=== PATIENT | female | born 1945 | race Caucasian/White ===

== ENCOUNTER 2019-03-28 21:56 | Inpatient (IN) | payer MEDICARE, OTHER ==
[~2019-03-28] VITALS: Ht 157.5 cm; Wt 61.2 kg
--- OUTSIDE RECORDS SUMMARY | 2019-03-28 21:58 | XMS REPORT | Summary of Care ---
Author Author [facility] - Health Organization [facility] - Health Address Unknown Phone Unavailable Care Team Providers Care Service Order Taker Name Role Phone Valentine Boone COLD FOOD PACKER PCP Reason for Referral * (Routine) Referred By Contact Referred To Contact Status Reason Specialty Diagnoses / Procedures Tyesha Mckeon PA-C [address] [place] [address] New Request Audiology Diagnoses Bilateral hearing loss, unspecified hearing loss type P rocedures CONSULT/REFERRAL AUDIOLOGY Reason for Visit * Reason Comments New Evaluation Ear Problem Hearing Problem * (Routine) Referred By Contact Referred To Contact Status Reason Specialty Diagnoses / Procedures Danny Lopez [address] [place] [address] Authorized Otolaryngology Diagnoses Unspecified hearing loss, left ear Impacted cerumen, bilateral P rocedures CONSULT/REFERRAL OTOLARYNGOLOGY Encounter Details Care Team Description Date Type Department Shelbie Us PA [address] [place] [address] Bilateral hearing loss, unspecified hearing loss type (Primary Dx); Tinnitus of both ears; Bilateral impacted cerumen 01/01/2019 [facility] [address] [place] [address] Allergies Comments Active Allergy Reactions Severity Noted Date Unknown pt confused. Penicillins Other - See Low 01/08/2017 comments documented as of this encounter (statuses as of 01/01/2019) Medications End Date Status Medication Sig Dispensed Refills Start Date Active ALPRAZolam 2 mg Take 1 tablet 45 tablet 2 tabletIndications: by mouth 2 9 Anxiety (two) times daily as needed for Anxiety. Active atorvastatin 20 mg Take 1 tablet 90 tablet 1 tabletIndications: by mouth at 9 Coronary artery disease bedtime. involving [place] heart without angina pectoris, unspecified vessel or lesion type Active cloniDINE 0.2 mg Daily prn 90 tablet 1 tabletIndications: >160 systolic 9 Hypertensive heart or >100 disease without heart diastolic failure Active clopidogrel 75 mg Take 1 tablet 90 tablet 1 tabletIndications: by mouth 9 Coronary artery disease daily. involving [place] heart without angina pectoris, unspecified vessel or lesion type, Hypertensive heart disease without heart failure, S/P coronary artery stent placement Active fluticasone-vilanterol 1 puff daily, 3 Each 1 (BREO ELLIPTA) 100-25 rinse mouth 9 mcg/dose DsDvIndications: after dose Chronic obstructive pulmonary disease, unspecified COPD type Active hydrOXYzine 25 mg Take 1 tablet 90 tablet 1 tabletIndications: by mouth 3 9 Itching (three) times daily as needed for Itching. Active metoprolol succinate XL Take 1 tablet 90 tablet 1 100 mg 24 hr by mouth 9 tabletIndications: daily. Hypertensive heart disease without heart failure Active levoFLOXacin (LEVAQUIN) Take 1 tablet 7 tablet 0 500 mg tabletIndications: by mouth 9 Acute non-recurrent every 24 sinusitis, unspecified (twenty-four) location, COPD hours. exacerbation Active methylPREDNISolone Take by 21 Each 0 (MEDROL, HUNG,) 4 mg mouth 9 tabletsIndications: COPD SEE-INSTRUCTI exacerbation ONS. follow package directions Active albuterol 90 Inhale 2 8.5 g 11 mcg/actuation Puffs every 6 9 inhalerIndications: (six) hours Chronic obstructive as needed for pulmonary disease, Wheezing or unspecified COPD type Shortness of Breath. documented as of this encounter (statuses as of 01/01/2019) Active Problems Problem Noted Date Chronic obstructive pulmonary disease, unspecified COPD type 07/30/2018 Anxiety 07/30/2018 Coronary artery disease involving [place] heart without angina pectoris, 07/30/2018 unspecified vessel or lesion type Hypertensive heart disease without heart failure 07/30/2018 S/P coronary artery stent placement 07/30/2018 Prediabetes 07/30/2018 Chronic kidney disease, stage III (moderate) 07/30/2018 documented as of this encounter (statuses as of 01/01/2019) Social History Date Tobacco Use Types Packs/Day Years Used Former Smoker Cigarettes 3 50 Smokeless Tobacco: Never Used Drinks/Week oz/Week Comments Alcohol Use No Sex Assigned at Date Recorded Not on file Industry Job Start Date Occupation Not on file Not on file Not on file Travel End Travel History Travel Start No recent travel history available. documented as of this encounter Last Filed Vital Signs Reading Time Taken Comments Vital Sign - - Blood Pressure - - Pulse - - Temperature - - Respiratory Rate - - Oxygen Saturation - - Inhaled Oxygen Concentration 61.2 kg (135 lb) 01/01/2019 8:40 AM CDT Weight - - Height 23.91 07/30/2018 10:53 AM CDT Body Mass Index documented in this encounter Progress Notes * Shelbie Us PA - 01/01/2019 8:45 AM CDT Otolaryngology New Patient Clinic Visit Name: Liv Gonzalez Date: 01/01/2019 10:04 Chief Complaint: Hearing loss and cerumen impaction History of Present Illness: Liv Gonzalez is a 73 year old female presenting at the request of Danny rodriguez DO for initial evaluation of hearing loss and cerumen impaction. She repor ts not being able to hear with her left ear for 30 years. She states that 30 yea rs ago, she was cleaning the kitchen and heard a pop. She was evaluated by a ENT in the [facility] and was told there was no available intervention to fix her hearing. She denies recurrent ear infections or ear surgeries in the past. Today, she has noticed that hearing on her right side has progressively wo rsened the past few months. She is requesting a hearing test and is interested i n obtaining hearing aids. She was evaluated by her PCP and found to have bilater al cerumen impactions. She cleans her ears with q-tips. She also endorses stable longstanding HF tinnitus in the left ear. Denies otalgia, otorrhea, ear fullnes s, or other ENT concerns. Past Medical Hx: Past Medical History: Diagnosis Date Anxiety Asthma Depression Hypertension Past Surgical Hx: Past Surgical History: Procedure Laterality Date COLONOSCOPY 12/2015 Social History: Social History Tobacco Use Smoking status: Former Smoker Packs/day: 3.00 Years: 50.00 Pack years: 150.00 Types: Cigarettes Smokeless tobacco: Never Used Substance Use Topics Alcohol use: No Drug use: No Family History: Family History Problem Relation Age of Onset Heart Mother Hypertension Mother Cancer Mother Depression Father Hypertension Father Heart Maternal Grandmother Heart Maternal Grandfather Cancer Paternal Grandmother Heart Paternal Grandfather Hypertension Paternal Grandfather Allergies: Penicillins Medications: Current Outpatient Medications Medication Sig albuterol 90 mcg/actuation inhaler Inhale 2 Puffs every 6 (six) hours as nee ded for Wheezing or Shortness of Breath. ALPRAZolam 2 mg tablet Take 1 tablet by mouth 2 (two) times daily as needed for Anxiety. atorvastatin 20 mg tablet Take 1 tablet by mouth at bedtime. cloniDINE 0.2 mg tablet Daily prn >160 systolic or >100 diastolic clopidogrel 75 mg tablet Take 1 tablet by mouth daily. fluticasone-vilanterol (BREO ELLIPTA) 100-25 mcg/dose DsDv 1 puff daily, rin se mouth after dose hydrOXYzine 25 mg tablet Take 1 tablet by mouth 3 (three) times daily as nee ded for Itching. levoFLOXacin (LEVAQUIN) 500 mg tablet Take 1 tablet by mouth every 24 (twent y-four) hours. methylPREDNISolone (MEDROL, HUNG,) 4 mg tablets Take by mouth SEE-INSTRUCTIO NS. follow package directions metoprolol succinate XL 100 mg 24 hr tablet Take 1 tablet by mouth daily. Review of Systems Positive issues in the Review of Systems will be BOLD Constitutional: fevers, chills, sweats, fatigue, weight loss, change in appetit e Eyes: vision changes, diplopia, eye pain Ears: hearing loss, otalgia, otorrhea, tinnitus, vertigo Nose: rhinorrhea, nasal congestion, epistaxis Throat: dysphagia, odynophagia, dysphonia Cardiovascular: chest pain, palpitations, dyspnea on exertion Respiratory: cough, wheeze, shortness of breath; hx asthma or COPD Gastrointestinal: nausea, vomiting, diarrhea, abdominal pain, heartburn, indiges tion Genitourinary: recent infections, ESRD, dysuria, oliguria Musculoskeletal: arthritis, joint pain, mobility problems Integumentary: skin infection, rashes or skin changes Neurologic: seizures, headaches, weakness Psychiatric: ADHD, anxiety, depressed mood, substance abuse Endocrine: thyroid problems, diabetes Hematologic: bleeding disorders, easy bruising Allergy/Immunology: food allergy, environmental allergy, immunosuppressed, eczem a Physical Exam: Wt 135 lb (61.2 kg) | BMI 23.91 kg/m GENERAL: WDWN in NAD. Normal voice. No dyspnea or stridor. HEAD/FACE: Normocephalic, atraumatic. Facial nerve intact and bilaterally symmet kenia. Submandibular and parotid glands non-tender and without masses. EYES: EOMI; conjunctivae clear EARS: Auricles normal. Canals with significant cerumen impactions bilaterally- S ee procedure note below. NOSE: no external deviation; nares patent, nasal mucosa normal; septum midline; inferior turbinates mild hypertrophy. No polyps, purulence, or mass. OC/OP: No trismus; oral mucosa is wnl, no mass or lesion; edentulous, normal ton adis mobility; tonsils present and not enlarged; uvula midline; palate intact and elevates symmetrically. NECK: Neck is supple; trachea midline; no obvious goiter or thyroid nodules appr eciated. LYMPH: Unable to appreciate gross cervical lymphadenopathy. SKIN: No concerning rash, lesion, pigmentation changes on head/neck. NEUROLOGICAL: Cranial nerves II-XII grossly intact. PSYCHIATRIC: Oriented to person, place, time. Appropriate affect for age. RESPIRATORY: Good respiratory effort; symmetrical expansion of thoracic cavity. CARDIOVASCULAR: Extremities well perfused. No cyanosis. PROCEDURE NOTE: BINOCULAR MICROSCOPY WITH BILATERAL CERUMEN REMOVAL Verbal consent was obtained. Binocular microscopy was used to evaluate the right ear. Speculum placed in the right ear. Narrow canals with obstructive cerumen. A combination of suction, multiple applications of colase, and blunt dissection were used to remove wax from the right ear. Inspection of the TM shows it to be intact with no effusion or retraction. Speculum then placed in the left ear. Aga in narrow canal with obstructive cerumen that was removed using suction and blun t dissection. Inspection of the TM shows it to be intact with no effusion or ret raction. Patient reported improvement in ear fullness and hearing following ceru men removal. Patient tolerated the procedure well. No complications. Medical Data Comprehensive chart review performed in Epic Laboratory No new labs Radiology No new imaging Diagnoses: ICD-10-CM ICD-9-CM 1. Bilateral hearing loss, unspecified hearing loss type H91.93 389.9 2. Tinnitus of both ears H93.13 388.30 3. Bilateral impacted cerumen H61.23 380.4 Assessment/Plan: Liv Gonzalez is a 73 year old female with hearing loss(L>R) and bilateral cerumen impactions. Cerumen was removed in clinic today. Her ear exam following disimpaction was normal. Will schedule audiogram to evaluate hearing loss. - Ears cleaned today. No evidence of infection. - No Q-tips or other objects in ears. - Audio consult placed for hearing loss - Follow up after audiogram I discussed at length the exam findings, diagnoses, and treatment options with the patient. Questions have been answered to satisfaction. EPIFANIO BauitstaC Department of Otolaryngology [facility] documented in this encounter Plan of Treatment Care Team Description Date Type Specialty 2, [place] Audio Sound Suite 01/22/2019 Ancillary Visit Audiology Shelbie Us PA [address] [place] [id number] 01/22/2019 Office Visit Otolaryngology Health Maintenance Due Date Last Done Comments HEPATITIS C (HCV) SCREEN 1947 DTaP,Tdap,and Td Vaccines 1966 (1 - Tdap) MAMMOGRAM 1987 COLONOSCOPY 1997 Zoster Recombinant 1997 Vaccine (SHINGRIX) (1 of 2) LUNG CANCER SCREEN: 2002 Recommended for age 55-80 with 30 + pack year history Medicare Wellness Visit 2012 Osteoporosis Screening 2012 PNEUMOCOCCAL VACCINES 65+ 2012 (1 of 2 - PCV13) INFLUENZA VACCINE (#1) 2019 documented as of this encounter Results Not on filedocumented in this encounter Visit Diagnoses Diagnosis Bilateral hearing loss, unspecified hearing loss type - Primary Tinnitus of both ears Unspecified tinnitus Bilateral impacted cerumen Impacted cerumen documented in this encounter Insurance Type Payer Benefit Subscriber ID Effective Phone Address Plan / Dates Group Medicare MEDICARE MEDICARE xxxxxxxxxxx 2012- [id number] [place] [address] Medicaid [place] MED[place] xxxxxxxxx 2018-P [phone] [address] [facility] [address] [place] [address] documented as of this encounter"
--- OUTSIDE RECORDS SUMMARY | 2019-03-28 21:58 | XMS REPORT | Summary of Care ---
Author Author [facility] - Health Organization [facility] - Health Address Unknown Phone Unavailable Care Team Providers Care Occupational Rehabilitation Aide Name Role Phone Valentine Boone PCP Reason for Visit * Reason Comments Refill Request Encounter Details Care Team Description Date Type Department Valentine Boone FNP [address] [id number] Refill Request 01/07/2019 Refill [facility], [address] [address] Allergies Comments Active Allergy Reactions Severity Noted Date Unknown pt confused. Penicillins Other - See Low 01/08/2017 comments documented as of this encounter (statuses as of 01/07/2019) Medications End Date Status Medication Sig Dispensed Refills Start Date Active ALPRAZolam 2 mg Take 1 tablet 45 tablet 2 tabletIndications: by mouth 2 9 Anxiety (two) times daily as needed for Anxiety. Active atorvastatin 20 mg Take 1 tablet 90 tablet 1 tabletIndications: by mouth at 9 Coronary artery disease bedtime. involving [place] heart without angina pectoris, unspecified vessel or lesion type Active cloniDINE 0.2 mg Daily prn 90 tablet 1 tabletIndications: >160 systolic 9 Hypertensive heart or >100 disease without heart diastolic failure Active clopidogrel 75 mg Take 1 tablet 90 tablet 1 tabletIndications: by mouth 9 Coronary artery disease daily. involving [place] heart without angina pectoris, unspecified vessel or lesion type, Hypertensive heart disease without heart failure, S/P coronary artery stent placement Active hydrOXYzine 25 mg Take 1 tablet [...] or unspecified COPD type Shortness of Breath. Active fluticasone INHALE 1 PUFF 180 Each 1 furoate-vilanterol (BREO BY MOUTH 9 ELLIPTA) 100-25 mcg/dose EVERY DAY * DsDvIndications: Chronic RINSE MOUTH obstructive pulmonary AFTER USE * disease, unspecified COPD type 01/07/2019 Discontinued fluticasone-vilanterol 1 puff daily, 3 Each 1 (BREO ELLIPTA) 100-25 rinse mouth 9 mcg/dose DsDvIndications: after dose Chronic obstructive pulmonary disease, unspecified COPD type documented as of this encounter (statuses as of 01/07/2019) Active Problems Problem Noted Date Chronic obstructive pulmonary disease, unspecified COPD type 07/30/2018 Anxiety 07/30/2018 Coronary artery disease involving [place] heart without angina pectoris, 07/30/2018 unspecified vessel or lesion type Hypertensive heart disease without heart failure 07/30/2018 S/P coronary artery stent placement 07/30/2018 Prediabetes 07/30/2018 Chronic kidney disease, stage III (moderate) 07/30/2018 documented as of this encounter (statuses as of 01/07/2019) Social History Date Tobacco Use Types Packs/Day [...] of this encounter Last Filed Vital Signs Not on filedocumented in this encounter Plan of Treatment Care Team Description Date Type Specialty 2, [place] Audio Sound Suite 01/22/2019 Ancillary Visit Audiology Shelbie Us PA [address] [place] [address] 01/22/2019 Office Visit Otolaryngology Health Maintenance Due [...] filedocumented in this encounter Visit Diagnoses Diagnosis Chronic obstructive pulmonary disease, unspecified COPD type documented in this encounter Insurance Type Payer Benefit Subscriber ID Effective Phone Address Plan / Dates Group Medicare MEDICARE MEDICARE xxxxxxxxxxx 2012- [phone] Present [id number] [place] [id number] Medicaid [place] MED[place] xxxxxxxxx 2018-P [phone] [address] [facility] [id number] [place] [address] documented as of this encounter
--- OUTSIDE RECORDS SUMMARY | 2019-03-28 21:58 | XMS REPORT | Summary of Care ---
Author Author [facility] - Health Organization [facility] - Health Address Unknown Phone Unavailable Care Team Providers Care Microphone Boom Operator Name Role Phone Valentine Boone DIGITAL PRE PRESS OPERATOR PCP Reason for Visit * Reason Comments Follow-up hearing loss Encounter Details Care Team Description Date Type Department Shelbie Us PA [address] [place] [address] Tinnitus of both ears (Primary Dx); Left asymmetrical SNHL; Sensorineural hearing loss (SNHL) of right ear with restricted hearing of left ear; Salpingitis of left eustachian tube 01/22/2019 [facility] [address] [place] [address] Allergies Comments Active Allergy Reactions Severity Noted Date Unknown pt confused. Penicillins Other - See Low 01/08/2017 comments documented as of this encounter (statuses as of 01/22/2019) Medications End Date Status Medication Sig Dispensed Refills Start Date Active ALPRAZolam 2 mg Take 1 tablet 45 tablet 2 tabletIndications: by mouth 2 9 Anxiety (two) times daily as needed for Anxiety. Active atorvastatin 20 mg Take 1 tablet 90 tablet 1 tabletIndications: by mouth at 9 Coronary artery disease bedtime. involving [place] heart without angina pectoris, unspecified vessel or lesion type Active cloniDINE 0.2 mg Daily prn 90 tablet 1 tabletIndications: >160 systolic 9 Hypertensive heart or >100 disease without heart diastolic failure Active clopidogrel 75 mg Take 1 tablet 90 tablet 1 tabletIndications: by mouth 9 Coronary artery disease daily. involving [place] heart without angina pectoris, unspecified vessel or [...] AFTER USE * disease, unspecified COPD type documented as of this encounter (statuses as of 01/22/2019) Active Problems Problem Noted Date Chronic obstructive pulmonary disease, unspecified COPD type 07/30/2018 Anxiety 07/30/2018 Coronary artery disease involving [place] heart without angina pectoris, 07/30/2018 unspecified vessel or lesion type Hypertensive heart disease without heart failure 07/30/2018 S/P coronary artery stent placement 07/30/2018 Prediabetes 07/30/2018 Chronic kidney disease, stage III (moderate) 07/30/2018 documented as of this encounter (statuses as of 01/22/2019) Social History Date Tobacco Use Types Packs/Day [...] - - Blood Pressure - - Pulse 35.8 C (96.5 F) 01/22/2019 11:29 AM CDT Temperature - - Respiratory Rate - - Oxygen Saturation - - Inhaled Oxygen Concentration 61.2 kg (135 lb) 01/22/2019 11:29 AM CDT Weight - - Height 23.91 07/30/2018 10:53 AM CDT Body Mass Index documented in this encounter Progress Notes * Shelbie Us PA - 01/22/2019 11:15 AM CDT Otolaryngology New Patient Clinic Visit Name: Liv Gonzalez Date: 01/22/2019 13:36 Chief Complaint: Hearing loss and cerumen impaction History of Present Illness: Liv Gonzalez is a 73 year old female who was last seen 01/01/19 with complai nts of progressive R sided hearing loss and tinnitus. At that time she reported 30+ year history of L sided profound hearing loss. She denied recurrent ear infe ctions or ear surgeries in the past. She follows up today after audiogram. No ne w concerns Past Medical Hx: Past Medical History: Diagnosis [...] Penicillins Medications: Current Outpatient Medications Medication Sig fluticasone furoate-vilanterol (BREO ELLIPTA) 100-25 mcg/dose DsDv INHALE 1 PUFF BY MOUTH EVERY DAY * RINSE MOUTH AFTER USE * albuterol 90 mcg/actuation inhaler Inhale 2 Puffs [...] tablet Take 1 tablet by mouth daily. hydrOXYzine 25 mg tablet Take 1 tablet [...] environmental allergy, immunosuppressed, eczem a Physical Exam: Temp 35.8 C (96.5 F) (Tympanic) | Wt 135 lb (61.2 kg) | BMI 23.91 kg/m GENERAL: WDWN in NAD. Normal voice. No dyspnea or stridor. HEAD/FACE: Normocephalic, atraumatic. Facial nerve intact and bilaterally symmet kenia. Submandibular and parotid glands non-tender and without masses. EYES: EOMI; conjunctivae clear EARS: Auricles normal. Canals clear. TMs intact. Middle ear clear NOSE: no external deviation; nares patent, nasal [...] cavity. CARDIOVASCULAR: Extremities well perfused. No cyanosis. Results Audiogram Today Right: Normal sloping to severe SNHL. WDS 82%. Type A tymp Left: Profound SNHL. CNT WDS. Type C tymp (187 daPa) Diagnoses: ICD-10-CM ICD-9-CM 1. Tinnitus of both ears H93.13 388.30 2. Left asymmetrical SNHL H90.42 389.16 3. Sensorineural hearing loss (SNHL) of right ear with restricted hearing of lef t ear H90.A21 389.22 4. Salpingitis of left eustachian tube H68.002 381.50 Assessment/Plan: Liv Gonzalez is a 73 year old female with hearing loss and tinnitus who fol lows up today after audiogram. Results demonstrate profound L sided hearing loss and normal sloping to severe R SNHL. Patient interested in hearing aids. Audiol sanjayxiomara gave her information on obtaining hearing aids through [employer], her insurances covered plan. -Recommend OTC Flonase BID for ETD/AR -Follow up PRN I discussed at length the exam findings, diagnoses, and treatment options with the patient. Questions have been answered to satisfaction. SHARON Bautista-C Department of Otolaryngology [facility] * Geneva Dick MA - 01/22/2019 11:15 AM CDT Liv Gonzalez is a 73 year old female patient here for a follow up on hearin g loss and discuss audio. documented in this encounter Plan of Treatment Health Maintenance Due Date Last Done Comments [...] filedocumented in this encounter Visit Diagnoses Diagnosis Tinnitus of both ears - Primary Unspecified tinnitus Left asymmetrical SNHL Sensorineural hearing loss, asymmetrical Sensorineural hearing loss (SNHL) of right ear with restricted hearing of left ear Salpingitis of left eustachian tube Eustachian salpingitis, unspecified documented in this encounter Insurance Type Payer Benefit Subscriber ID Effective Phone Address Plan / Dates Group Medicare MEDICARE MEDICARE xxxxxxxxxxx 2012- [id number] [place] [address] Medicaid [place] MED[place] xxxxxxxxx 2018-P [phone] [address] [facility] [address] [place] [address] documented as of this encounter"
--- OUTSIDE RECORDS SUMMARY | 2019-03-28 21:58 | XMS REPORT | Summary of Care ---
Author Author [facility] - Health Organization [facility] - Health Address Unknown Phone Unavailable Care Team Providers Care Installation Technician Name Role Phone Valentine Boone FINISH PRODUCTION MANAGER PCP Reason for Visit * Reason Comments Follow-up hearing loss Encounter Details Care Team Description Date Type Department Shelbie Us PA [address] [place] [address] Tinnitus of both ears (Primary Dx); Left asymmetrical SNHL; Sensorineural hearing loss (SNHL) of right ear with restricted hearing of left ear; Salpingitis of left eustachian tube 01/22/2019 [facility] [address] [place] [address] Allergies Comments Active Allergy Reactions [...] at 9 Coronary artery disease bedtime. involving [place] heart without angina pectoris, unspecified vessel or lesion type Active cloniDINE 0.2 mg Daily prn 90 tablet 1 tabletIndications: >160 systolic 9 Hypertensive heart or >100 disease without heart diastolic failure Active clopidogrel 75 mg Take 1 tablet 90 tablet 1 tabletIndications: by mouth 9 Coronary artery disease daily. involving [place] heart without angina pectoris, unspecified vessel or [...] 07/30/2018 Anxiety 07/30/2018 Coronary artery disease involving [place] heart without angina pectoris, 07/30/2018 unspecified vessel [...] her information on obtaining hearing aids through [employer], her insurances covered plan. -Recommend OTC Flonase BID for ETD/AR -Follow up PRN I discussed at length the exam findings, diagnoses, and treatment options with the patient. Questions have been answered to satisfaction. SHARON Bautista-C Department of Otolaryngology [facility] * Geneva Dick MA - 01/22/2019 11:15 [...] Dates Group Medicare MEDICARE MEDICARE xxxxxxxxxxx 2012- [phone] & B Present [id number] [place] [address] Medicaid [place] MED[place]ID xxxxxxxxx 2018-P [phone] [address] [facility] [address] [place] [address] documented as of this encounter"
--- OUTSIDE RECORDS SUMMARY | 2019-03-28 21:58 | XMS REPORT | Summary of Care ---
Author Author [facility] - Health Organization [facility] - Health Address Unknown Phone Unavailable Care Team Providers Care Parking Lot Chauffeur Name Role Phone Valentine Boone METAL SOLDERER PCP Encounter Details Care Team Description Date Type Department Doctor Unassigned, [place] [address] [place] [address] 11/27/2018 Orders Only [address] [address] Allergies Comments Active Allergy Reactions Severity Noted Date Unknown pt confused. Penicillins Other - See Low 01/08/2017 comments documented as of this encounter (statuses as of 11/30/2018) Medications End Date Status Medication Sig Dispensed Refills Start Date Active ALPRAZolam 2 mg Take 1 tablet 45 tablet 2 tabletIndications: by mouth 2 9 Anxiety (two) times daily as needed for Anxiety. Active atorvastatin 20 mg Take 1 tablet 90 tablet 1 tabletIndications: by mouth at 9 Coronary artery disease bedtime. involving [place] heart without angina pectoris, unspecified vessel or lesion type Active cloniDINE 0.2 mg Daily prn 90 tablet 1 tabletIndications: >160 systolic 9 Hypertensive heart or >100 disease without heart diastolic failure Active clopidogrel 75 mg Take 1 tablet 90 tablet 1 tabletIndications: by mouth 9 Coronary artery disease daily. involving [place] heart without angina pectoris, unspecified vessel or [...] methylPREDNISolone Take by 21 Each 0 (MEDROL, HUGN,) 4 mg mouth 9 tabletsIndications: COPD SEE-INSTRUCTI exacerbation ONS. follow package directions Active albuterol 90 Inhale 2 8.5 g 11 mcg/actuation Puffs every 6 9 inhalerIndications: (six) hours Chronic obstructive as needed for pulmonary disease, Wheezing or unspecified COPD type Shortness of Breath. documented as of this encounter (statuses as of 11/30/2018) Active Problems Problem Noted Date Chronic obstructive pulmonary disease, unspecified COPD type 07/30/2018 Anxiety 07/30/2018 Coronary artery disease involving [place] heart without angina pectoris, 07/30/2018 unspecified vessel or lesion type Hypertensive heart disease without heart failure 07/30/2018 S/P coronary artery stent placement 07/30/2018 Prediabetes 07/30/2018 Chronic kidney disease, stage III (moderate) 07/30/2018 documented as of this encounter (statuses as of 11/30/2018) Social History Date Tobacco Use Types Packs/Day [...] filedocumented in this encounter Plan of Treatment Health [...] (1 of 2 - PCV13) INFLUENZA VACCINE 01/04/2019 documented as of this encounter Procedures Comments Procedure Name Priority Date/Time Associated Diagnosis REFERRAL- Routine 11/27/2018 REQUEST/RESPONSE 12:01 AM CDT documented in this encounter Results Not on filedocumented in this encounter Insurance Type Payer Benefit Subscriber ID Effective Phone Address Plan / Dates Group Medicare MEDICARE MEDICARE xxxxxxxxxxx 2012- [phone] [address] & B Present [id number] [place] [id number] Medicaid [facility] xxxxxxxxx 2018-P [address] MANAGED MEDICAID HEALTHCARE [place] [id number] MEDICAID [place], [place] documented as of this encounter
--- OUTSIDE RECORDS SUMMARY | 2019-03-28 21:58 | XMS REPORT | Summary of Care ---
Author Author [facility] - Health Organization [facility] - Health Address Unknown Phone Unavailable Care Team Providers Care Laboratory Chemist Name Role Phone Valentine Boone NEW AUTOS DELIVERY DRIVER PCP Reason for Referral * (Routine) Referred By Contact Referred To Contact Status Reason Specialty Diagnoses / Procedures Tyesha Mckeon PA-C [address] [facility] [address] [place] [address] New Request Audiology Diagnoses Bilateral hearing loss, unspecified hearing loss type P rocedures CONSULT/REFERRAL AUDIOLOGY Reason for Visit * Reason Comments New Evaluation Ear Problem Hearing Problem * (Routine) Referred By Contact Referred To Contact Status Reason Specialty Diagnoses / Procedures Danny Lopez [address] [place] [address] Authorized Otolaryngology Diagnoses Unspecified hearing loss, left ear Impacted cerumen, bilateral P rocedures CONSULT/REFERRAL OTOLARYNGOLOGY Encounter Details Care Team Description Date Type Department Shelbie Us PA [address] [place] [address] Bilateral hearing loss, unspecified hearing loss type (Primary Dx); Tinnitus of both ears; Bilateral impacted cerumen 01/01/2019 [facility] [address] [place] [address] Allergies Comments Active Allergy Reactions [...] at 9 Coronary artery disease bedtime. involving [place] heart without angina pectoris, unspecified vessel or lesion type Active cloniDINE 0.2 mg Daily prn 90 tablet 1 tabletIndications: >160 systolic 9 Hypertensive heart or >100 disease without heart diastolic failure Active clopidogrel 75 mg Take 1 tablet 90 tablet 1 tabletIndications: by mouth 9 Coronary artery disease daily. involving [place] heart without angina pectoris, unspecified vessel or [...] 07/30/2018 Anxiety 07/30/2018 Coronary artery disease involving [place] heart without angina pectoris, 07/30/2018 unspecified vessel [...] was evaluated by a ENT in the [facility] and was told there was no [...] Questions have been answered to satisfaction. EPIFANIO BautistaC Department of Otolaryngology [facility] documented in this encounter Plan of Treatment Care Team Description Date Type Specialty 2, [place] [employer] Suite 01/22/2019 Ancillary Visit Audiology Shelbie Us PA [address] [place] [phone] 01/22/2019 Office Visit Otolaryngology Health Maintenance Due [...] Dates Group Medicare MEDICARE MEDICARE xxxxxxxxxxx 2012- [phone] [address] & B Present [id number] [place] [id number] Medicaid [place] xxxxxxxxx 2018-P [phone] [address] [facility] [id number] [place] [address] documented as of this encounter"
--- OUTSIDE RECORDS SUMMARY | 2019-03-28 21:58 | XMS REPORT | Summary of Care ---
Author Author [facility] - Health Organization [facility] - Health Address Unknown Phone Unavailable Care Team Providers Care Goodyear Welter Name Role Phone Valentine Boone SIDE FRAMER PCP Encounter Details Care Team Description Date Type Department Doctor Unassigned, [place] [address] [place] [address] 01/22/2019 Orders Only [address] [address] Allergies Comments Active Allergy Reactions Severity Noted [...] at 9 Coronary artery disease bedtime. involving [place] heart without angina pectoris, unspecified vessel or lesion type Active cloniDINE 0.2 mg Daily prn 90 tablet 1 tabletIndications: >160 systolic 9 Hypertensive heart or >100 disease without heart diastolic failure Active clopidogrel 75 mg Take 1 tablet 90 tablet 1 tabletIndications: by mouth 9 Coronary artery disease daily. involving [place] heart without angina pectoris, unspecified vessel or [...] (LEVAQUIN) Take 1 tablet 7 tablet 0 03/27/201 500 mg tabletIndications: by mouth 9 Acute [...] 07/30/2018 Anxiety 07/30/2018 Coronary artery disease involving [place] heart without angina pectoris, 07/30/2018 unspecified vessel [...] Treatment Care Team Description Date Type Specialty Shelbie Us PA [address] [place] [address] 01/22/2019 Office Visit Otolaryngology Health Maintenance Due [...] (#1) 2019 documented as of this encounter Procedures Comments Procedure Name Priority Date/Time Associated Diagnosis NO SHOW OR MISSED Routine 01/22/2019 APPOINTMENT POLICY 10:31 AM CDT ACKNOWLEDGEMENT documented in this encounter Results Not on filedocumented in this encounter Insurance Type Payer Benefit Subscriber ID Effective Phone Address Plan / Dates Group Medicare MEDICARE MEDICARE xxxxxxxxxxx 2012- [phone] [address] & B Present [id number] [place] [id number] Medicaid [place] xxxxxxxxx 2018-P [phone] [address] [facility] [id number] [place] [address] documented as of this encounter
--- OUTSIDE RECORDS SUMMARY | 2019-03-28 21:58 | XMS REPORT ---
Author Author [facility] Address Unknown Phone Unavailable Care Team Providers Care Mini Baccarat Dealer Name Role Phone Unavailable Unavailable Problems This patient has no known problems. Allergies, Adverse Reactions, Alerts This patient has no known allergies or adverse reactions. Medications This patient has no known medications.
--- OUTSIDE RECORDS SUMMARY | 2019-03-28 21:59 | XMS REPORT | Summary of Care ---
Author Author [facility] - Health Organization [facility] - Health Address Unknown Phone Unavailable Care Team Providers Care Director Personal Name Role Phone Valentine Booen PUBLIC EMPLOYMENT MEDIATOR PCP Reason for Visit * Reason Comments Audiological Evaluation * (Routine) Referred By Contact Referred To Contact Status Reason Specialty Diagnoses / Procedures Tyesha Mckeon PA-C [address] [place] [address] [place] [address] Closed Audiology Diagnoses Bilateral hearing loss, unspecified hearing loss type P rocedures CONSULT/REFERRAL AUDIOLOGY Encounter Details Care Team Description Date Type Department Kaitlynn Rincon, PHD [address] [facility] [id number] [place], [place] [id number] Lam Dejesus, AUD [address] [place] [phone] Sensory hearing loss, bilateral (Primary Dx); Asymmetrical hearing loss of both ears; Person feigning illness; Subjective tinnitus, unspecified laterality 01/22/2019 Ancillary [facility] [address] [place] [phone] Allergies Comments Active Allergy Reactions Severity Noted [...] at 9 Coronary artery disease bedtime. involving [place] heart without angina pectoris, unspecified vessel or lesion type Active cloniDINE 0.2 mg Daily prn 90 tablet 1 tabletIndications: >160 systolic 9 Hypertensive heart or >100 disease without heart diastolic failure Active clopidogrel 75 mg Take 1 tablet 90 tablet 1 tabletIndications: by mouth 9 Coronary artery disease daily. involving [place] heart without angina pectoris, unspecified vessel or [...] 07/30/2018 Anxiety 07/30/2018 Coronary artery disease involving [place] heart without angina pectoris, 07/30/2018 unspecified vessel [...] Signs Not on filedocumented in this encounter Progress Notes * Lam Dejesus AUD - 01/22/2019 10:30 AM CDT Audiogram/Hearing Evaluation will be scanned and will be available in Chart Revi ew under the Procedures tab. Ramila Forte, [facility] Board Certified in Audiology Bead Filler documented in this encounter Plan of Treatment [...] filedocumented in this encounter Visit Diagnoses Diagnosis Sensory hearing loss, bilateral - Primary Asymmetrical hearing loss of both ears Person feigning illness Subjective tinnitus, unspecified laterality documented in this encounter Insurance Type Payer Benefit Subscriber ID Effective Phone Address Plan / Dates Group Medicare MEDICARE MEDICARE xxxxxxxxxxx 2012- [phone] [address] & B Present [id number] [place] [id number] Medicaid [facility] MEDICAID xxxxxxxxx 2018-P [phone] [address] [facility] [id number] [place] [address] documented as of this encounter
[2019-03-28] MEDS ORDERED: PIPER-TAZ 3.375 GM 50 ML IV SCH (23:00)
[2019-03-28] MEDS: SODIUM CHLORIDE 0.9% 1000ML 1,000 ML IV SCH ×2 (23:08→23:31)
--- NOTE | 2019-03-28 23:33 | NUR ---
[facility] NOTIFIED OF TRANSFER. ETA GIVEN OF 30-45 MINUTES
[2019-03-28] MEDS ORDERED: ACETAMINOPHEN 325 MG TAB ONE (23:57)
[2019-03-28] MEDS ORDERED: PIPER-TAZ 3.375 GM 50 ML ONE (23:57)
[2019-03-29] VITALS (8 sets, daily range): BP systolic 109–175; BP diastolic 58–87
--- NOTE | 2019-03-29 | NUR ---
Report given Tomeka CUI from [facility].
[2019-03-29] MEDS: SODIUM CHLORIDE 0.9% 1000ML 1,000 ML IV SCH ×6 (00:15→17:59)
--- NOTE | 2019-03-29 00:15 | NUR ---
Patient arrived to floor via stretcher. Per EMS patient received zosyn in which she is allergic to. The nurse at [facility] did not stop the meds but sent her to [facility] for admit. Called and S/W Reynold and received orders.
--- NOTE | 2019-03-29 00:43 | Diagnostic Imaging Report ---
EXAM: CT Abdomen and Pelvis WITHOUT contrast INDICATION: Abdominal pain, vomiting, black-colored stool COMPARISON: None. TECHNIQUE: Abdomen and pelvis were scanned utilizing a multidetector helical scanner from the lung base to the pubic symphysis without administration of IV contrast. Absence of intravenous contrast decreases sensitivity for detection of focal lesions and vascular pathology. Coronal and sagittal reformations were obtained. Routine protocol was performed. IV CONTRAST: None ORAL CONTRAST: None COMPLICATIONS: None RADIATION DOSE: Total DLP: 383 mGy*cm Estimated effective dose: (DLP x 0.015 x size factor) mSv CTDIvol has been reviewed. It is below the limits set by the Radiation Protocol Committee (RPC). Dose modulation, iterative reconstruction, and/or weight based adjustment of the mA/kV was utilized to reduce the radiation dose to as low as reasonably achievable. FINDINGS: Respiratory motion artifact limits evaluation of the upper abdomen. LINES and TUBES: None. LOWER THORAX: Bibasilar atelectasis. Trace pericardial fluid. HEPATOBILIARY: No focal hepatic lesions. No biliary ductal dilation. GALLBLADDER: A gallstone in the dependent gallbladder body lumen. No wall thickening. SPLEEN: No splenomegaly. PANCREAS: No focal masses or ductal dilatation. ADRENALS: No right adrenal nodules . 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 KIDNEYS/URETERS: No hydronephrosis. A few small cysts in the kidneys. No solid masses. No stones. Mild left renal atrophy. Moderate bilateral perinephric fat stranding, left greater than right. GI TRACT: Moderate sliding hiatal hernia with mild circumferential thickening of the distal esophagus. Mild wall thickening of the cecum, ascending colon, and transverse colon. The splenic flexure is normal. No abnormal distention or evidence of bowel obstruction. Appendix is normal. PELVIC ORGANS/BLADDER: Bladder is underdistended, mild circumferential bladder wall thickening and perivesicular fat stranding. A 3.2 cm cyst in the right adnexa. LYMPH NODES: No lymphadenopathy. VESSELS: There is moderate atherosclerotic disease in the aorta and major arterial branches. PERITONEUM / RETROPERITONEUM: No free air or fluid. BONES: There are degenerative changes in the spine. SOFT TISSUES: Calcific granulomas in the right gluteal subcutaneous adipose. IMPRESSION: 1. Mild findings of nonspecific colitis from the cecum to transverse colon, considerations include colonic ischemia in the setting of blood colored stool and dense aortic calcifications. Other considerations are infectious/inflammatory colitis. 2. Moderate sliding hiatal hernia with distal esophagitis. 3. Moderate bilateral perinephric fat stranding, left greater than right, can be seen with renal insufficiency or senescence, however pyelonephritis is also possible. Urinary bladder findings can be seen with cystitis. 4. An indeterminate 3.2 cm cyst in the right adnexa. Recommend nonemergent pelvic ultrasound for further evaluation. 5. Cholelithiasis without evidence of acute obstructive cholecystitis.. Signed by: Judd Ghosh DO on 03/29/2019 12:40 AM
[2019-03-29] MEDS ORDERED: FAMOTIDINE 20 MG/2 ML VIAL IV STA (01:02)
[2019-03-29] MEDS ORDERED: METHYLPREDNISOLONE SOD SUCC 40 MG/ML VIAL 1ML IV ONE (01:15)
[2019-03-29] MEDS ORDERED: DIPHENHYDRAMINE HCL INJ 50 MG/ML VIAL IV PRN (01:15)
[2019-03-29] MEDS ORDERED: PANTOPRAZOLE 40 MG 10ML VIAL IV STA (01:40)
[2019-03-29] MEDS: LEVOFLOXACIN 500MG/D5W 100ML 100 ML IV SCH (01:45)
[2019-03-29] MEDS ORDERED: PANTOPRAZOLE INJ 40 MG in SODIUM CHLORIDE 0.9% 50ML 50 ML IV SCH (01:45)
[2019-03-29] MEDS ORDERED: LEVOFLOXACIN 500MG/D5W 100ML 100 ML IV ONE (01:45)
[2019-03-29] MEDS: CIPROFLOXACIN 400 MG/D5W 200ML 200 ML IV SCH ×2 (02:00→14:00)
[2019-03-29 02:23] LABS: BASOPHILS # (AUTO) 0.1 (0.0-0.1); BASOPHILS % 0.5 % (0.0-1.0); EOSINOPHILS % 0.2 % (0.0-6.0); HEMATOCRIT 30.5 % (34.2-44.1); HEMOGLOBIN 9.5 g/dL (12.0-16.0); LYMPHOCYTES # (AUTO) 1.2 (1.0-3.2); LYMPHOCYTES % 7.3 % (18.0-39.1); MEAN CORPUSCULAR HEMOGLOBIN 29.1 pg (28-32); MEAN CORPUSCULAR HGB CONC 31.1 g/dL (31-35); MEAN CORPUSCULAR VOLUME 93.3 fL (81-99); NEUTROPHILS # (AUTO) 13.6 (2.1-6.9); NEUTROPHILS % 84.5 % (38.7-80.0); PLATELET COUNT 291 x10e3/uL (140-360); RED BLOOD COUNT 3.27 x10e6/uL (3.6-5.1); RED CELL DISTRIBUTION WIDTH 15.7 % (11.7-14.4)
[2019-03-29] MEDS: ACETAMINOPHEN 325 MG TAB PO PRN ×3 (04:40→04:41)
[2019-03-29] MEDS ORDERED: HYDRALAZINE HCL 20 MG/ML VIAL IV PRN (04:45)
[2019-03-29] MEDS ORDERED: MORPHINE SULFATE INJ 4 MG/ML INJ 1ML IV PRN (04:45)
[2019-03-29] MEDS: METRONIDAZOLE 500MG/NS 100ML 100 ML IV SCH ×3 (05:36→18:23)
[2019-03-29] MEDS ORDERED: METRONIDAZOLE 500MG/NS 100ML 100 ML IV SCH (06:00)
[2019-03-29 07:00] LABS: INR 1.17; PROTHROMBIN TIME 15.5 seconds (11.9-14.5)
[2019-03-29 07:01] LABS: PARTIAL THROMBOPLASTIN TIME 37.3 seconds (23.8-35.5)
[2019-03-29 07:14] LABS: CREATINE KINASE MB 1.4 ng/mL (0-5.0)
--- NOTE | 2019-03-29 07:30 | NUR ---
PT UP IN BED AWAKE ,DENIES PAIN NO DISTRESS NOTED,SPOKE WITH DR SHAH RE;LAB RESULTS.
[2019-03-29] MEDS ORDERED: PROTONIX 200MG/SODIUM CHLORIDE 0.9% 250 ML BAG IV SCH (07:45)
[2019-03-29] MEDS ORDERED: PANTOPRAZOL 40MG/SOD CHL 0.9% 50 ML IV ONE (07:48)
[2019-03-29] MEDS ORDERED: PANTOPRAZOL 200MG/SOD CHL 0.9% 250 ML IV SCH (08:00)
[2019-03-29] MEDS: PANTOPRAZOL 40MG/SOD CHL 0.9% 50 ML IV SCH ×4 (08:52→23:15)
[2019-03-29] MEDS ORDERED: CLONIDINE HCL0.2 MG PO (11:24)
[2019-03-29] MEDS ORDERED: ALPRAZOLAM1 MG PO (11:24)
[2019-03-29] MEDS ORDERED: METOPROLOL SUCC50 MG PO (11:24)
[2019-03-29] MEDS ORDERED: HYDROXYZINE HCL25 MG PO (11:24)
[2019-03-29] MEDS ORDERED: CLOPIDOGREL75 MG PO (11:24)
[2019-03-29] MEDS ORDERED: BREO ELLIPTA 11 EACH INH (11:24)
[2019-03-29 13:35] LABS: CALCIUM 8.9 mg/dL (8.4-10.2); CREATININE, SERUM 2.4 mg/dL (0.57-1.11)
[2019-03-29 16:15] LABS: CREATINE KINASE MB 1.4 ng/mL (0-5.0)
[2019-03-29] MEDS: CLONIDINE HCL 0.2 MG TAB PO PRN (16:54)
--- NOTE | 2019-03-29 17:58 | NUR ---
PT UP IN BED ,NO VOMITING NOTED,PAIN LEVEL 3,TO ABD.
--- NOTE | 2019-03-29 20:00 | NUR ---
Received change of shift report from AM nurse. Walking rounds completed.
--- NOTE | 2019-03-29 22:24 | NUR ---
Patient c/o anxiety. Received order from [facility] for home med.
[2019-03-29] MEDS ORDERED: ALPRAZOLAM 1 MG TAB PO PRN (22:30)
[2019-03-30] VITALS (10 sets, daily range): BP systolic 100–184; BP diastolic 55–88
[2019-03-30] MEDS: LEVOFLOXACIN 500MG/D5W 100ML 100 ML IV SCH (01:45)
[2019-03-30] MEDS: CIPROFLOXACIN 400 MG/D5W 200ML 200 ML IV SCH (01:51)
[2019-03-30] MEDS: MORPHINE SULFATE 2 MG/ML SYR 1ML IV PRN ×2 (02:19→22:06)
[2019-03-30] MEDS: PANTOPRAZOL 40MG/SOD CHL 0.9% 50 ML IV SCH ×4 (04:15→18:00)
[2019-03-30] MEDS: METRONIDAZOLE 500MG/NS 100ML 100 ML IV SCH ×5 (05:06→23:45)
[2019-03-30 06:18] LABS: BASOPHILS # (AUTO) 0.1 (0.0-0.1); BASOPHILS % 0.5 % (0.0-1.0); EOSINOPHILS # (AUTO) 0.1 (0.0-0.4); EOSINOPHILS % 0.9 % (0.0-6.0); HEMATOCRIT 25.3 % (34.2-44.1); HEMOGLOBIN 7.8 g/dL (12.0-16.0); LYMPHOCYTES # (AUTO) 2.2 (1.0-3.2); LYMPHOCYTES % 20.6 % (18.0-39.1); MEAN CORPUSCULAR HEMOGLOBIN 28.7 pg (28-32); MEAN CORPUSCULAR HGB CONC 30.8 g/dL (31-35); MONOCYTES # (AUTO) 0.7 (0.2-0.8); MONOCYTES % 6.3 % (4.4-11.3); NEUTROPHILS # (AUTO) 7.5 (2.1-6.9); NEUTROPHILS % 70.4 % (38.7-80.0); PLATELET COUNT 300 x10e3/uL (140-360); RED BLOOD COUNT 2.72 x10e6/uL (3.6-5.1); RED CELL DISTRIBUTION WIDTH 16.3 % (11.7-14.4)
[2019-03-30 06:51] LABS: CALCIUM 8.6 mg/dL (8.4-10.2); CREATININE, SERUM 1.96 mg/dL (0.57-1.11)
[2019-03-30 06:57] LABS: POTASSIUM 3.7 mmol/L (3.5-5.1)
[2019-03-30 07:10] LABS: ANION GAP 13.7 mmol/L (8-16)
[2019-03-30 07:40] LABS: CREATINE KINASE 15 IU/L (29-168)
[2019-03-30] MEDS: VILANTEROL INH SCH (09:00)
[2019-03-30] MEDS: FLUTICASONE INH SCH (09:00)
[2019-03-30] MEDS: METOPROLOL SUCCINATE 50 MG TAB XL PO SCH (09:00)
--- NOTE | 2019-03-30 11:24 | NUR ---
Pt IVs infiltrated bilaterally. Site is red and swollen. IVs removed without complication at this time.
[2019-03-30] MEDS: CLONIDINE HCL 0.2 MG TAB PO PRN (14:40)
[2019-03-30] MEDS ORDERED: LIDOCAINE HCL 1% LOCAL INJ 20 ML VIAL ONE (16:39)
[2019-03-30] MEDS ORDERED: SODIUM CHLORIDE 0.9% 250ML 250 ML ONE (16:39)
[2019-03-30] MEDS ORDERED: FENTANYL CITRATE/PF 100MCG/2 ML INJ ONE (16:50)
[2019-03-30] MEDS: SODIUM CHLORIDE 0.9% 1000ML 1,000 ML IV SCH ×2 (18:23→23:11)
--- NOTE | 2019-03-30 20:00 | NUR ---
RECEIVED PT IN BED .DENIES PAIN RT CHEST CENTRAL LINE DOUBLE LUMEN NS AT 125 CC/HR TELE 84 SR .PT IS ON PROTONIX DRIP PT IS NPO FOR EGD .CALL LIGHT WITH IN REACH .CONTINUE TO MONITOR
[2019-03-31] VITALS (7 sets, daily range): BP systolic 133–179; BP diastolic 67–112
[2019-03-31] MEDS: CLONIDINE HCL 0.2 MG TAB PO PRN ×2 (00:15→22:00)
[2019-03-31] MEDS: PANTOPRAZOL 40MG/SOD CHL 0.9% 50 ML IV SCH ×5 (01:04→20:15)
[2019-03-31] MEDS: LEVOFLOXACIN 500MG/D5W 100ML 100 ML IV SCH (01:14)
[2019-03-31 04:15] LABS: BASOPHILS # (AUTO) 0.1 (0.0-0.1); BASOPHILS % 0.7 % (0.0-1.0); EOSINOPHILS # (AUTO) 0.2 (0.0-0.4); EOSINOPHILS % 2.4 % (0.0-6.0); HEMATOCRIT 24.8 % (34.2-44.1); HEMOGLOBIN 7.8 g/dL (12.0-16.0); LYMPHOCYTES # (AUTO) 2.2 (1.0-3.2); LYMPHOCYTES % 24.7 % (18.0-39.1); MEAN CORPUSCULAR HEMOGLOBIN 28.8 pg (28-32); MEAN CORPUSCULAR HGB CONC 31.5 g/dL (31-35); MEAN CORPUSCULAR VOLUME 91.5 fL (81-99); MONOCYTES # (AUTO) 0.7 (0.2-0.8); MONOCYTES % 8.4 % (4.4-11.3); NEUTROPHILS # (AUTO) 5.5 (2.1-6.9); PLATELET COUNT 303 x10e3/uL (140-360); RED BLOOD COUNT 2.71 x10e6/uL (3.6-5.1); RED CELL DISTRIBUTION WIDTH 16.2 % (11.7-14.4)
[2019-03-31] MEDS: MORPHINE SULFATE 2 MG/ML SYR 1ML IV PRN ×2 (04:23→22:02)
[2019-03-31] MEDS: SODIUM CHLORIDE 0.9% 1000ML 1,000 ML IV SCH ×3 (04:24→15:11)
[2019-03-31 04:34] LABS: ANION GAP 11.9 mmol/L (8-16); CALCIUM 8.7 mg/dL (8.4-10.2); CREATININE, SERUM 1.55 mg/dL (0.57-1.11); POTASSIUM 3.9 mmol/L (3.5-5.1)
[2019-03-31 04:56] LABS: FERRITIN 123.59 ng/mL (4.63-204.00)
[2019-03-31] MEDS: METRONIDAZOLE 500MG/NS 100ML 100 ML IV SCH ×4 (06:06→23:35)
--- NOTE | 2019-03-31 06:16 | NUR ---
PT IS NPO FOR EGD .C/O PAIN AND GIVEN ORDERED MORPHINE CALL LIGHT WITH IN REACH.CONTINUE TO MONITOR
[2019-03-31] MEDS: AMLODIPINE BESYLATE 10 MG TAB PO SCH (09:00)
[2019-03-31] MEDS: FLUTICASONE INH SCH (09:00)
[2019-03-31] MEDS: VILANTEROL INH SCH (09:00)
[2019-03-31] MEDS: METOPROLOL SUCCINATE 50 MG TAB XL PO SCH (09:00)
[2019-03-31] MEDS: ONDANSETRON HCL INJ 2MG/ML 2ML 2 MG/ML VIAL IV PRN ×2 (09:03→22:00)
--- NOTE | 2019-03-31 09:09 | Diagnostic Imaging Report ---
PROCEDURE: Tunneled central venous catheter placement Procedural Personnel Attending physician(s): Jonathon Lopez MD Fellow physician(s): None Resident physician(s): None Advanced practice provider(s): None Pre-procedure diagnosis: Sepsis, poor vascular access Post-procedure diagnosis: Same Indication: intermediate antibiotic administration Additional clinical history: Patient CKD 3, tunneled IJ catheter preferred to preserve upper extremity veins. Complications: No immediate complications. IMPRESSION: Insertion of right-sided dual-lumen tunneled Proline catheter, with tip in the expected location of the cavoatrial junction. Plan: The catheter may be used immediately. PROCEDURE SUMMARY: - Venous access with ultrasound guidance - Tunneled central venous catheter insertion with fluoroscopic guidance - Additional procedure(s): None PROCEDURE DETAILS: Pre-procedure Consent: Informed consent for the procedure including risks, benefits and alternatives was obtained and time-out was performed prior to the procedure. Preparation (MIPS): The site was prepared and draped using all elements of maximal sterile barrier technique including sterile gloves, sterile gown, cap, mask, large sterile sheet, sterile ultrasound probe cover, hand hygiene and cutaneous antisepsis with 2% chlorhexidine. Medical reason for site preparation exception (MIPS): Not applicable Anesthesia/sedation Level of anesthesia/sedation: No sedation Anesthesia/sedation administered by: Independent trained observer under attending supervision with continuous monitoring of the patient?s level of consciousness and physiologic status Access Local anesthesia was administered. The vessel was sonographically evaluated and determined to be patent. Real time ultrasound was used to visualize needle entry into the vessel and a permanent image was stored. Vein accessed: Internal jugular vein Access technique: Micropuncture set with 21 gauge needle Catheter placement An incision was made near the venous access site and the catheter was tunneled subcutaneously to the venous access site. The catheter was advanced via a peel-away sheath into the vein under fluoroscopic guidance. Catheter tip location was fluoroscopically verified and a permanent image was stored. Catheter placed: Medcomp Proline Catheter size (Ukrainian): 6 Catheter flush: Normal saline Closure A sterile dressing was applied. Access site closure technique: Tissue adhesive Catheter securement technique: Non-absorbable suture Radiation Dose Fluoroscopy time (minutes): 0.2 Reference air kerma (mGy): 0.75 Additional Details Additional description of procedure: None Equipment details: None Specimens removed: None Estimated blood loss (mL): Less than 10 Standardized report: [email or web address] Attestation Signer name: Jonathon Lopez MD I attest that I was present for the entire procedure. I reviewed the stored images and agree with the report as written. Signed by: Joanthon Lopez MD on 03/31/2019 9:06 AM
--- NOTE | 2019-03-31 12:23 | NUR ---
PATIENT LEAVING FLOOR AT THIS TIME FOR EGD.
--- NOTE | 2019-03-31 14:19 | NUR ---
PT BACK TO ROOM AT THIS TIME FROM EGD.
--- NOTE | 2019-03-31 15:50 | NUR ---
Visit made by the Spiritual Care Department Pastoral Visitor, Catalina Bruce. PV provided pastoral presence, prayer, hospitality, and supportive listening. Pastoral Visitor informed pt/family of the scope of Integrated Logistics Support Manager Services and availability. OLAMIDE GABRIEL Enrobing Machine Operator Spiritual Care Department O: [phone] Pager: [phone] ([phone] number calling from)
--- NOTE | 2019-03-31 16:05 | Operative Report ---
DATE OF PROCEDURE: 03/31/2019 SURGEON: Sanya Salazar MD PROCEDURE: EGD with biopsies. INDICATIONS FOR EGD: History of hematemesis, melena. MEDICATIONS: The patient was done under MAC, please see anesthesiologist's note. PROCEDURE IN DETAIL: With the patient in left lateral decubitus position, a flexible fiberoptic Olympus gastroscope was introduced into the esophagus under direct visualization without any difficulty. Some linear erosions were noted in the esophagus without active bleeding. There was a focal nodular and friable area noted at the GE junction that was biopsied. The scope was then advanced with ease into the stomach traversing a small hiatal hernia. Mucosa overlying the antrum and the body revealed some diffuse erythema and moderate edema, and biopsies were obtained and sent to stain for H. pylori. Multiple gastric ulcers up to 1.2 cm in size were noted in the antrum without active bleeding and biopsies were obtained. Pylorus was intubated with ease and the scope was advanced all the way to the second portion of the duodenum. Biopsies were obtained from the proximal second portion and the duodenal bulb to rule out sprue. The scope was then withdrawn back into the stomach and retroflexed. Mucosa overlying the fundus appeared to be within normal limits. The previously described hiatal hernia was also noted in the retroflexed position. The scope was then straightened out, it was subsequently withdrawn, and the patient tolerated the procedure well. IMPRESSION: 1. Erosive esophagitis. 2. Focal nodularity, GE junction, biopsied. 3. Small hiatal hernia. 4. Gastritis, biopsied, biopsies sent to stain for Helicobacter pylori. 5. Gastric ulcers, antrum, several up to 1.2 cm in size without active bleeding or stigmata of recent hemorrhage. Biopsies obtained. 6. Rule out sprue. PLAN: Follow up histology. Continue PPI therapy. Add Carafate 1 g p.o. before meals t.i.d. and at bedtime. Advance to GI soft diet. The patient will need a repeat EGD after 2 months of therapy to re-evaluate stomach and document healing. Sanya Salazar MD [facility]/MODL /[id number] cc: Mahendra Beltre MD
[2019-03-31] MEDS: SUCRALFATE 1 GM TAB PO SCH ×2 (17:12→21:59)
--- NOTE | 2019-03-31 19:00 | NUR ---
received report from day nurse. patient is resting comfortably in bed. bed is in lowest position and call mustafa is within reach. will continue to monitor patient's plan of care.
[2019-03-31] MEDS ORDERED: PROPOFOL IV EMULSION 10 MG/ML 20 ML VIAL ONE (19:02)
[2019-03-31] MEDS ORDERED: FENTANYL CITRATE/PF 100MCG/2 ML INJ ONE (19:44)
[2019-03-31] MEDS ORDERED: MIDAZOLAM HCL 2 MG/2 ML VIAL ONE (19:44)
[2019-04-01] VITALS: BP 158/74
[2019-04-01] MEDS: PANTOPRAZOL 40MG/SOD CHL 0.9% 50 ML IV SCH ×2 (01:18→05:49)
[2019-04-01] MEDS: LEVOFLOXACIN 500MG/D5W 100ML 100 ML IV SCH (01:18)
[2019-04-01 03:31] LABS: BASOPHILS % 0.4 % (0.0-1.0); EOSINOPHILS # (AUTO) 0.1 (0.0-0.4); EOSINOPHILS % 1.5 % (0.0-6.0); HEMATOCRIT 25.3 % (34.2-44.1); LYMPHOCYTES # (AUTO) 1.9 (1.0-3.2); LYMPHOCYTES % 21.3 % (18.0-39.1); MEAN CORPUSCULAR HEMOGLOBIN 28.7 pg (28-32); MEAN CORPUSCULAR HGB CONC 31.6 g/dL (31-35); MEAN CORPUSCULAR VOLUME 90.7 fL (81-99); MONOCYTES # (AUTO) 0.8 (0.2-0.8); MONOCYTES % 8.6 % (4.4-11.3); NEUTROPHILS # (AUTO) 5.9 (2.1-6.9); NEUTROPHILS % 65.3 % (38.7-80.0); PLATELET COUNT 297 x10e3/uL (140-360); RED BLOOD COUNT 2.79 x10e6/uL (3.6-5.1)
[2019-04-01 03:48] LABS: ANION GAP 13.6 mmol/L (8-16); CALCIUM 8.6 mg/dL (8.4-10.2); CREATININE, SERUM 1.53 mg/dL (0.57-1.11); MAGNESIUM 1.5 MG/DL (1.3-2.1); POTASSIUM 3.6 mmol/L (3.5-5.1)
[2019-04-01 04:00] VITALS: BP 182/84
[2019-04-01] MEDS: CLONIDINE HCL 0.2 MG TAB PO PRN (04:43)
[2019-04-01] MEDS: METRONIDAZOLE 500MG/NS 100ML 100 ML IV SCH (05:44)
[2019-04-01] MEDS: SODIUM CHLORIDE 0.9% 1000ML 1,000 ML IV SCH (05:49)
[2019-04-01] MEDS ORDERED: METRONIDAZOLE500 MG PO (06:11)
[2019-04-01] MEDS ORDERED: LEVAQUIN500 MG PO (06:11)
[2019-04-01] MEDS ORDERED: PANTOPRAZOLE SO40 MG PO (06:11)
[2019-04-01] MEDS ORDERED: NORVASC10 MG PO (06:11)
[2019-04-01] MEDS ORDERED: CARAFATE1 GM PO (06:11)
--- NOTE | 2019-04-01 06:54 | NUR ---
RECEIVED BEDSIDE SHIFT REPORT FROM OFF GOING NURSE. PATIENT IS RESTING IN BED. NO ACUTE DISTRESS NOTED. CALL LIGHT WITHIN REACH. BED IN THE LOWEST POSITION.
[2019-04-01 07:59] LABS: ANISOCYTOSIS SLIGHT; ELLIPTOCYTE, RBC SLIGHT; EOSINOPHILS % (MANUAL) 3 % (0-7); LYMPHOCYTES % (MANUAL) 25 % (19-48); METAMYELOCYTES % (MANUAL) 1 % (0-0); MONOCYTES % (MANUAL) 6 % (3.4-9.0); MYELOCYTES % (MANUAL) 2 % (0-0); NEUTROPHILS % (MANUAL) 63 % (40-74); POIKILOCYTOSIS SLIGHT
[2019-04-01 08:00] VITALS: BP 153/99
[2019-04-01 08:00] LABS: BURR CELLS SLIGHT; HELMET CELLS RARE; PLATELET ESTIMATE ADEQUATE; PLATELET MORPHOLOGY COMMENT FEW LARGE; RBC MORPHOLOGY COMMENT ABNORMAL
[2019-04-01] MEDS: FLUTICASONE INH SCH (08:33)
[2019-04-01] MEDS: VILANTEROL INH SCH (08:33)
[2019-04-01] MEDS: SUCRALFATE 1 GM TAB PO SCH (08:35)
[2019-04-01] MEDS: METOPROLOL SUCCINATE 50 MG TAB XL PO SCH (08:35)
[2019-04-01] MEDS: AMLODIPINE BESYLATE 10 MG TAB PO SCH (08:35)
--- NOTE | 2019-04-01 09:48 | NUR ---
RECEIVED DC ORDER FROM SATINDER TIJERINA. PATIENT IS IN STABLE CONDITION. CENTRAL LINE TO RIGHT UPPER CHEST DCD WITH TIP INTACT, PRESSURE DRESSING APPLIED. DISCHARGE TEACHING PROVIDED TO PATIENT, SHE VERBALIZED UNDERSTANDING. DISCHARGE FOLDER WITH PRESCRIPTIONS ON HAND. PERSONAL ITEMS ON HAND. PATIENT ACCOMPANIED TO PRIVATE AUTO VIA WHEELCHAIR BY STAFF.
--- NOTE | 2019-04-02 12:27 | Discharge Summary ---
ADMISSION DIAGNOSES: 1. Gastrointestinal bleed. 2. Colitis. 3. Hypertension. 4. 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 5. Esophagitis. 6. Hyperkalemia. 7. Leukocytosis. DISCHARGE DIAGNOSES: 1. Gastrointestinal bleed. 2. Colitis. 3. Hypertension. 4. 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 5. Esophagitis. 6. Hyperkalemia. 7. Leukocytosis. 8. Erosive esophagitis with gastritis. HISTORY: Hypertension, CO with stents, anxiety. SURGICAL HISTORY: Dental surgery. FAMILY HISTORY: Cancer and high blood pressure. SOCIAL HISTORY: Noncontributory. HOSPITAL COURSE: A 74-year-old female admits with complaints of GI bleed both from vomiting and diarrhea for the past 5 days, but it worsened prior to admission. She was initially evaluated in outpatient ER, then transferred to the hospital. On admission, the patient's hemoglobin was 9.5 and it dropped to 7.8. CT of the abdomen showed mild findings of nonspecific colitis from the cecum to transverse colon. The patient had an EGD, which showed erosive esophagitis, focal nodularity at the GE junction, small hiatal hernia, gastritis, and gastric ulcers, several up to 1.2 cm without active bleeding or stigmata of recent hemorrhage. The patient was started on Protonix drip on admission, and changed to Protonix tablet at discharge. She was also given a prescription for Carafate. She was started on Levaquin and Flagyl on admission, which was also switched to tablet. The patient will be discharged home and follow up for repeat EGD as discussed with GI. She will also follow up with primary care in 1 to 2 weeks. The patient is tolerating diet at the time of discharge, and her abdominal pain is controlled. Vital signs are stable. The patient is afebrile. The patient understands discharge instructions and agrees to plan. Dictated by Teresita Townsend NP MD JOSE Fajardo/MODL /[id number]
== END 2019-04-01 09:55 | disposition home or self-care (01) | DRG 871 ==
LOC: FSED 21:56 → ERHOLD 23:43 → MED/SURG3 03-29 00:48
PROVIDERS: ADMIT Internal Medicine; ATTEND Internal Medicine
PROC: 0DB98ZX Excision of Duodenum, Via Natural or Artificial Opening Endoscopic, Diagnostic (ICD-10-PCS; principal; 2019-03-28)
PROC: 0DB78ZX Excision of Stomach, Pylorus, Via Natural or Artificial Opening Endoscopic, Diagnostic (ICD-10-PCS; 2019-03-28)
PROC: 0DB48ZX Excision of Esophagogastric Junction, Via Natural or Artificial Opening Endoscopic, Diagnostic (ICD-10-PCS; 2019-03-28)
PROC: 0JH63XZ Insertion of Tunneled Vascular Access Device into Chest Subcutaneous Tissue and Fascia, Percutaneous Approach (ICD-10-PCS; 2019-03-30)
DX: A41.9 Sepsis, unspecified organism (principal); K25.4 Chronic or unspecified gastric ulcer with hemorrhage; A09 Infectious gastroenteritis and colitis, unspecified; N17.9 Acute kidney failure, unspecified; D62 Acute posthemorrhagic anemia; I25.10 Atherosclerotic heart disease of native coronary artery without angina pectoris; Z95.1 Presence of aortocoronary bypass graft; K20.9 Esophagitis, unspecified; E87.5 Hyperkalemia; I12.9 Hypertensive chronic kidney disease with stage 1 through stage 4 chronic kidney disease, or unspecified chronic kidney disease; N18.3 Chronic kidney disease, stage 3 (moderate); J44.9 Chronic obstructive pulmonary disease, unspecified; F41.9 Anxiety disorder, unspecified; Z95.5 Presence of coronary angioplasty implant and graft; I25.2 Old myocardial infarction
CPT/HCPCS: 36415; 36558; 43239; 74176; 74470; 76937; 77001; 80048; 80053; 81003; 82550; 82553; 82607; 82728; 83540; 83735; 84466; 84484; 85025; 85045; 85610; 85730; 88305; 88312; 93005; 96365; 96366; 99284; J0360; J1200; J1956; J2001; J2250; J2270; J2405; J2543; J2920; J3010; J7030; J7050

== ENCOUNTER 2019-06-04 10:02 | Emergency (ER) | payer MEDICARE, OTHER ==
[~2019-06-04] VITALS: Ht 157.5 cm; Wt 56.7 kg
[~2019-06-04 10:02] MED LIST: ALPRAZOLAM1 MG PO; BREO ELLIPTA 11 EACH INH; CARAFATE1 GM PO; CLONIDINE HCL0.2 MG PO; CLOPIDOGREL75 MG PO; HYDROXYZINE HCL25 MG PO; LEVAQUIN500 MG PO; METOPROLOL SUCC50 MG PO; METRONIDAZOLE500 MG PO; NORVASC10 MG PO; PANTOPRAZOLE SO40 MG PO
--- NOTE | 2019-06-04 11:11 | Diagnostic Imaging Report ---
EXAMINATION: FOOT 3 VIEW RT - HOPD, ANKLE 3 VIEW RT - HOPD INDICATION: Trauma COMPARISON: None FINDINGS: Right ankle: No acute fracture or dislocation. Alignment appears anatomic. The ankle mortise is intact and symmetric. No ankle joint effusion. The soft tissues appear unremarkable. Right foot: Mildly displaced fractures involve the neck of the second, third and fourth metatarsals. Severe degenerative changes of the first MTP joint with [id number] contact and osteophyte formation. Mild soft tissue swelling at the dorsum of the foot. IMPRESSION: Mildly displaced fractures involving the neck of the second, third and fourth metatarsals. Mild associated dorsal foot soft tissue swelling. Severe first MTP joint degenerative changes. Signed by: Jonathon Lopez MD on 06/04/2019 11:09 AM
--- NOTE | 2019-06-04 11:11 | Diagnostic Imaging Report ---
EXAMINATION: FOOT 3 VIEW RT - HOPD, ANKLE 3 VIEW RT - HOPD INDICATION: Trauma COMPARISON: None FINDINGS: Right ankle: No acute fracture or dislocation. Alignment appears anatomic. The ankle mortise is intact and symmetric. No ankle joint effusion. The soft tissues appear unremarkable. Right foot: Mildly displaced fractures involve the neck of the second, third and fourth metatarsals. Severe degenerative changes of the first MTP joint with [id number] contact and osteophyte formation. Mild soft tissue swelling at the dorsum of the foot. IMPRESSION: Mildly displaced fractures involving the neck of the second, third and fourth metatarsals. Mild associated dorsal foot soft tissue swelling. Severe first MTP joint degenerative changes. Signed by: Jonathon Lopez MD on 06/04/2019 11:09 AM
--- NOTE | 2019-06-04 11:13 | Diagnostic Imaging Report ---
EXAMINATION: KNEE 3VW RT - HOPD INDICATION: Trauma COMPARISON: None FINDINGS: No acute fracture or dislocation. Alignment appears anatomic. No suprapatellar joint effusion. The soft tissues appear unremarkable. No substantial degenerative change. IMPRESSION: No acute osseous injury of the right knee. Signed by: Jonathon Lopez MD on 06/04/2019 11:11 AM
[2019-06-04 11:26] VITALS: BP 143/69
== END 2019-06-04 11:42 | disposition home or self-care (01) ==
LOC: FSED 10:02
DX: S92.321A Displaced fracture of second metatarsal bone, right foot, initial encounter for closed fracture (principal); S92.331A Displaced fracture of third metatarsal bone, right foot, initial encounter for closed fracture; S92.341A Displaced fracture of fourth metatarsal bone, right foot, initial encounter for closed fracture
CPT/HCPCS: 99283